=== PATIENT | male | born 1945 | race Caucasian/White ===

== ENCOUNTER 2016-07-26 08:44 | Day surgery (SDC) | payer OTHER ==
[~2016-07-26] VITALS: Ht 175.3 cm; Wt 76.2 kg
[~2016-07-26 08:44] MED LIST: ASPIR-LOW81 MG PO; CARDIZEM CD,CA180 MG PO; ELIQUIS5 MG PO; INCRUSE ELLI62.5 MCG IH; LOVASTATIN20 MG PO; MULTIVITAMIN1 EAC2 PO; PEPCID AC20 MG PO; PROAIR HFA8.5 GM IH
== END 2016-07-26 11:55 | disposition home or self-care (01) ==
LOC: CATH 08:44
PROC: 5A2204Z Restoration of Cardiac Rhythm, Single (ICD-10-PCS; principal; 2016-07-26)
DX: I48.91 Unspecified atrial fibrillation (principal); I25.10 Atherosclerotic heart disease of native coronary artery without angina pectoris; E78.5 Hyperlipidemia, unspecified; Z79.01 Long term (current) use of anticoagulants; Z79.82 Long term (current) use of aspirin; J44.9 Chronic obstructive pulmonary disease, unspecified; Z87.891 Personal history of nicotine dependence
CPT/HCPCS: 93005